=== PATIENT | male | born 1945 ===

== ENCOUNTER 2020-06-02 15:17 | Inpatient (IN) ==
[2020-06-02] MEDS ORDERED: *HR* Heparin 10,000 UNIT/10 ML VIAL ONE ×2 (15:27→17:05)
[2020-06-02] MEDS ORDERED: ISOVUE-370 200 ML INFUS..BTL ONE (15:27)
[2020-06-02] MEDS ORDERED: Nitroglycerin 1,000 MCG/10 ML VIAL IV ONE (15:27)
[2020-06-02] MEDS ORDERED: 0.9 % Sodium Chloride 2,000 ML ONE (15:27)
[2020-06-02] MEDS ORDERED: Heparin 1,000 UNITS/500 mL 500 ML ONE (15:27)
[2020-06-02] MEDS ORDERED: *HR* Atropine Sulfate 1 MG/10 ML SYRINGE ONE (16:22)
[2020-06-02] MEDS ORDERED: *HR* Norepinephrine 4 MG/4 ML VIAL IVC ONE (16:41)
[2020-06-02] MEDS ORDERED: D5% in Water 250 ML ONE ×2 (16:41→17:28)
[2020-06-02] MEDS ORDERED: *HR* EPINEPHrine 1 MG/10 ML SYRINGE ONE ×2 (17:19→17:24)
[2020-06-02] MEDS ORDERED: EPINEPHrine 1 MG/ML VIAL ONE (17:28)
[2020-06-02 17:41] LABS: ABG Base Excess -26 mEq/L (-2 to 3); ABG HCO3 10 mEq/L (21-27); ABG Oxygen Saturation 38 % (95-98); ABG PCO2 64 mmHg (35-45); ABG PO2 41 mmHg (85-104); ABG TCO2 12 mEq/L (20-26)
== END 2020-06-02 20:14 | disposition expired | DRG 247 ==
LOC: ICNU 19:05
PROVIDERS: ADMIT Internal Medicine; ATTEND Internal Medicine